=== PATIENT | female | born 1970 | race American Indian/Alaskan Native ===

== ENCOUNTER 2016-07-17 19:31 | Emergency (ER) | payer OTHER ==
[2016-07-17] MEDS ORDERED: MOTRIN ONE (20:06)
[2016-07-17] MEDS ORDERED: ZOFRAN ODT ONE (20:07)
[2016-07-17 21:04] LABS: Basophils % (Auto) 0.6 % (0.0-1.8); Eosinophils % (Auto) 2.6 % (0.0-4.3); Hemoglobin 12.1 gm/dl (10.1-14.3); Mean Corpuscular HGB Conc 32 % (30-34); Mean Corpuscular Hemoglobin 28 pg (28-32); Mean Corpuscular Volume 89 fl (79-97); Platelet Count 430 K/mm3 (140-440); Red Blood Count 4.29 M/mm3 (3.65-5.03); White Blood Count 8.3 K/mm3 (4.5-11.0)
[2016-07-17] MEDS ORDERED: MOTRIN PO ONE (21:05)
[2016-07-17] MEDS ORDERED: ZOFRAN ODT PO ONE (21:06)
[2016-07-17 21:11] LABS: Anion Gap 16 mmol/L; Blood Urea Nitrogen 15 mg/dL (7-17); Calcium 9.4 mg/dL (8.4-10.2); Carbon Dioxide 25 mmol/L (22-30); Chloride 98.5 mmol/L (98-107); Glucose 109 mg/dL (65-100); Potassium 3.7 mmol/L (3.6-5.0); Sodium 136 mmol/L (137-145)
[2016-07-17 21:51] LABS: Bilirubin,Urine NEG (Negative); Blood,Urine NEG (Negative); Ketones,Urine NEG (Negative); Leukocyte Esterase,Urine NEG (Negative); Nitrite,Urine NEG (Negative); Protein,Urine <15 mg/dL mg/dL (Negative); Urobilinogen,Urine < 2.0 mg/dL (<2.0); WBC,Urine < 1.0 /HPF (0.0-6.0)
--- NOTE | 2016-07-17 22:43 | Ultrasound Report ---
FINAL REPORT EXAM: US PELVIC COMPLETE HISTORY: abdominal pain TECHNIQUE: Transvesical and endovaginal pelvic sonographic imaging FINDINGS: The uterus is normally anteverted. It measures 8.8 x 4.0 x 5.8 centimeters. Endometrial stripe measures 2.6 millimeters which is within normal limits. Right ovary is not identified. By clinical history it is surgically absent. Left ovary measures 4.3 x 4.2 x 3.6 centimeters with 2 cysts, 1 measuring 3 centimeters and 1 measuring 1.6 centimeters. The cysts appear simple. There is no free pelvic fluid or adnexal mass lesion. IMPRESSION: Surgically absent right ovary. Two left ovarian/adnexal cysts, measuring 3 centimeters and 1.6 centimeters. These cysts appear simple. If clinically indicated, recommend off cycle follow-up imaging in 6 or 10 weeks. No adnexal mass or free cul-de-sac fluid. Normal endometrial stripe thickness.
--- NOTE | 2016-07-17 22:44 | Ultrasound Report ---
FINAL REPORT EXAM: US TRANSVAGINAL HISTORY: abdominal pain TECHNIQUE: Transvesical and endovaginal pelvic sonographic imaging was performed FINDINGS: The uterus is normally anteverted. It measures 8.8 x 4.0 x 5.8 centimeters. Endometrial stripe measures 2.6 millimeters which is within normal limits. Right ovary is not identified. By clinical history it is surgically absent. Left ovary measures 4.3 x 4.2 x 3.6 centimeters with 2 cysts, 1 measuring 3 centimeters and 1 measuring 1.6 centimeters. The cysts appear simple. There is no free pelvic fluid or adnexal mass lesion. IMPRESSION: Surgically absent right ovary. Two left ovarian/adnexal cysts, measuring 3 centimeters and 1.6 centimeters. These cysts appear simple. If clinically indicated, recommend off cycle follow-up imaging in 6 or 10 weeks. No adnexal mass or free cul-de-sac fluid. Normal endometrial stripe thickness.
[2016-07-18] MEDS ORDERED: TORADOL IV ONE (07:35)
--- NOTE | 2016-07-18 07:40 | Emergency Department Report ---
HPI - General Chief Complaint: Abdominal Pain Time Seen by Provider: 07/18/16 07:25 - HPI HPI: Room 10 The patient is a 45-year-old female presenting with a chief complaint of abdominal pain. The patient states for 1 week she has had constant pain in the right lower quadrant all occasional sharp component. Patient states her pain is constant in nature. The patient states 2 days ago shortness or primary physician for this pain where she underwent a pelvic exam/Pap smear, had blood work drawn and an ultrasound performed. The patient states she was told she had an ovarian cyst on the right and there was concern for pelvic inflammatory disease. Patient was started on doxycycline and Percocet. The patient states she has been taking the antibiotic as prescribed but only taken a small amount of the Percocet because she is afraid of becoming addicted. The patient states her pain has increased since yesterday prompting her to come to the emergency department. Patient admits to occasional nausea but denies vomiting, diarrhea or fever. Patient currently gives her pain a score of 8/10 Location: Right lower quadrant Duration: One week Quality: Dull and sharp Severity:8/10 Modifying factors: [see above] Context: [see above] Mode of transportation: The patient drove herself to the emergency department and there are no visitors present ED Past Medical Hx - Past Medical History Previous Medical History?: No - Surgical History Hx Appendectomy: Yes - Family History Family history: no significant - Social History Smoking Status: Never Smoker Substance Use Type: None (denies illicit drug use), Alcohol (occasional) - Medications Home Medications: Home Medications Medication Instructions Recorded Confirmed Last Taken Type Doxycycline 100 mg PO BID 07/17/16 07/17/16 Unknown History Hydrochlorothiazide [HCTZ] 1 tab PO DAILY 07/17/16 07/17/16 Unknown History Metoprolol 50 mg PO DAILY 07/17/16 07/17/16 Unknown History Oxycodone HCl/Acetaminophen 1 tab PO Q8H 07/17/16 07/17/16 Unknown History [Percocet 7.5/325 mg] ED Review of Systems ROS: Stated complaint: ABD PAIN/EMESIS Other details as noted in HPI Comment: All other systems reviewed and negative Constitutional: denies: chills, fever Eyes: denies: eye pain, eye discharge, vision change ENT: denies: ear pain, throat pain Respiratory: denies: cough, shortness of breath, wheezing Cardiovascular: denies: chest pain, palpitations Endocrine: no symptoms reported Gastrointestinal: nausea. denies: vomiting Genitourinary: denies: urgency, dysuria, discharge Musculoskeletal: denies: back pain, joint swelling, arthralgia Skin: denies: rash, lesions Neurological: denies: headache, weakness, paresthesias Psychiatric: denies: anxiety, depression Hematological/Lymphatic: denies: easy bleeding, easy bruising Physical Exam - Physical Exam Vital Signs: Vital Signs 07/17/16 07/18/16 07/18/16 20:30 07:14 07:15 Temperature 97.8 F 98 F Pulse Rate 85 66 Respiratory 18 18 18 Rate Blood Pressure 171/115 Blood Pressure 171/115 139/93 [Left] O2 Sat by Pulse 97 100 100 Oximetry Physical Exam: GENERAL: The patient is well-developed well-nourished female lying on stretcher not appearing to be in acute distress. [] HEENT: Normocephalic. Atraumatic. Extraocular motions are intact. Patient has moist mucous membranes. NECK: Supple. Trachea midline CHEST/LUNGS: Clear to auscultation. There is no respiratory distress noted. HEART/CARDIOVASCULAR: Regular. There is no tachycardia. There is no gallop rub or murmur. ABDOMEN: Abdomen is soft, with mild discomfort to palpation in the right lower quadrant. Patient has normal bowel sounds. There is no abdominal distention. SKIN: There is no rash. There is no edema. There is no diaphoresis. NEURO: The patient is awake, alert, and oriented. The patient is cooperative. The patient has normal speech MUSCULOSKELETAL: There is no evidence of acute injury. ED Course Vital Signs 07/17/16 07/18/16 07/18/16 20:30 07:14 07:15 Temperature 97.8 F 98 F Pulse Rate 85 66 Respiratory 18 18 18 Rate Blood Pressure 171/115 Blood Pressure 171/115 139/93 [Left] O2 Sat by Pulse 97 100 100 Oximetry ED Medical Decision Making - Lab Data Result diagrams: 07/17/16 20:42 07/17/16 20:42 Laboratory Tests 07/17/16 07/17/16 07/17/16 20:42 20:42 21:13 WBC 8.3 RBC 4.29 Hgb 12.1 Hct 38.0 MCV 89 MCH 28 MCHC 32 RDW 14.0 Plt Count 430 Lymph % (Auto) 28.1 Sullivan % (Auto) 7.8 H Eos % (Auto) 2.6 Baso % (Auto) 0.6 Lymph # 2.3 Sullivan # 0.6 Eos # 0.2 Baso # 0.1 Seg Neutrophils % 60.9 Seg Neutrophils # 5.0 Sodium 136 L Potassium 3.7 Chloride 98.5 Carbon Dioxide 25 Anion Gap 16 BUN 15 Creatinine 0.6 L Estimated GFR > 60 BUN/Creatinine Ratio 25.00 Glucose 109 H Calcium 9.4 Urine Color Straw Urine Turbidity Clear Urine pH 5.0 Ur Specific Mcfarland 1.008 Urine Protein <15 mg/dl Urine Glucose (UA) Neg Urine Ketones Neg Urine Blood Neg Urine Nitrite Neg Ur Reducing Substances Not Reportable Urine Bilirubin Neg Urine Ictotest Not Reportable Urine Urobilinogen < 2.0 Ur Leukocyte Esterase Neg Urine WBC (Auto) < 1.0 Urine RBC (Auto) 1.0 U Epithel Cells (Auto) 2.0 Urine HCG, Qual Negative - Radiology Data Radiology results: report reviewed (CT abdomen and pelvis), image reviewed (CT abdomen and pelvis) CT abdomen and pelvis (read by radiologist)-there is a nonspecific left adnexal cystic mass measuring about 2.8 x 2.8 x 3.4 cm. There is some hyperdensity or enhancement in the endometrial cavity. I cannot exclude an endometrial mass or polyp. Small umbilical hernia which contains fat only. - Differential Diagnosis ovarian cysts, diverticulitis, cholelithiasis Critical care attestation.: If time is entered above; I have spent that time in minutes in the direct care of this critically ill patient, excluding procedure time. ED Disposition Clinical Impression: Abdominal pain, Adnexal cyst Disposition: DISCHARGED TO HOME OR SELFCARE Is pt being admited?: No Does the pt Need Aspirin: No Condition: Stable Instructions: Abdominal Pain (ED) Additional Instructions: Return to the emergency department immediately should you develop worsening symptoms, fever, inability to tolerate food or liquid or any other concerns. Referrals: ZHANNA IVAN MD [Primary Care Provider] - 3-5 Days [facility] [Provider Group] - 3-5 Days Time of Disposition: 09:17
[2016-07-18] MEDS ORDERED: NACL ONE (08:16)
--- NOTE | 2016-07-18 09:02 | Cat Scan Report ---
FINAL REPORT EXAM: CT ABDOMEN PELVIS W CON HISTORY: right lower quadrant abdominal pain. TECHNIQUE: CT abdomen and pelvis performed. Images extend from diaphragm to pubic symphysis. PRIORS: None. FINDINGS: The visualized aspects of the lung bases are clear. The visualized liver, spleen, pancreas, adrenal glands and kidneys demonstrate no significant abnormalities. There is no abdominal aortic aneurysm. There is no evidence of intestinal obstruction. The appendix is normal. There is no free intraperitoneal air. There is a small umbilical hernia which contains only fat. The bladder is unremarkable. There is a left adnexal cystic mass 3.8 x 2.8 x 3.4 cm. There is some hyperdense or enhancing material within the endometrial cavity. I cannot exclude an endometrial mass or polyp. IMPRESSION: There is a nonspecific left adnexal cystic mass measuring about 3.8 x 2.8 x 3.4 cm. There is some hyperdensity or enhancement in the endometrial cavity. I cannot exclude an endometrial mass or polyp. Small umbilical hernia which contains only fat.
[2016-07-18 09:20] VITALS: BP 139/98
== END 2016-07-18 09:30 | disposition home or self-care (01) ==
LOC: ED 19:31
DX: N83.8 Other noninflammatory disorders of ovary, fallopian tube and broad ligament (principal); R10.31 Right lower quadrant pain
CPT/HCPCS: 36415; 74177; 76830; 76856; 80048; 81001; 81025; 85025; 96374; 99284; J1885; Q9967; Q0162